=== PATIENT | male | born 1960 | race Caucasian/White ===

== ENCOUNTER → 2024-10-14 | Outpatient (CLI) | payer SELFPAY ==
--- NOTE | 2024-10-14 13:00 | PROSBIL_PTH ---
PATIENT: BRITTNY ARREDONDO [facility] U#:[id number] AGE/SX: 64/M ROOM: RE10/14/[address]: Dr. Demarco Parra MD : 1960 BED: DIS: 10/14/2024 SPEC #: [id number] RECD: 10/14/24 15:00 STATUS: ALYSON DALTON #: [id number] MOLINA: 10/14/24 13:[address]: Demarco Parra DEPT: SURGICAL PATHOLOGY RECD BY: Randy Turner ENTERED: 10/15/24 08:46 SP TYPE: PROST BX RJ DR: Dr. Dewey Olivier MD Tissues: A - PROSTATE RIGHT B - PROSTATE RIGHT C - PROSTATE RIGHT D - PROSTATE LEFT E - PROSTATE LEFT F - PROSTATE LEFT Procedures: PROSTATE BX Immunohistochemical Stains HEADER OPERATION: Prostate biopsy PRE-OP DIAGNOSIS: Elevated PSA TISSUE SUBMITTED: A - Right apex, B - Right mid, C - Right base, D - Left apex, E - Left mid, F - Left base MICROSCOPIC DIAGNOSIS A. Prostate, right apex, biopsy: * Benign prostate tissue. * IHC for [id number] supports the histologic impression. B. Prostate, right mid, biopsy: * Benign prostate tissue. C. Prostate, right base, biopsy: * Benign prostate tissue. D. Prostate, left apex, biopsy: * Benign prostate tissue. E. Prostate, left mid, biopsy: * Benign prostate tissue. F. Prostate, left base, biopsy: * Benign prostate tissue. MICROSCOPIC DESCRIPTION Slides are reviewed. All matched controls reacted appropriately. These tests were developed and their performance characteristics determined by [facility]. They may not have been cleared or approved by the [place] Food and Drug Administration. The FDA has determined that such clearance or approval is not necessary.? The above immunohistochemical/dualISH?markers are ordered and reviewed by the Pathologist. GROSS DESCRIPTION A. Received in formalin in a container labeled with the patient's name, date of , and RA are 2 white and wispy core biopsies of soft tissue measuring 0.7 x 0.1 cm and 1.2 x 0.1 cm. Submitted in toto in A1. B. Received in formalin in a container labeled with the patient's name, date of , and RM are 2 white and wispy core biopsies of soft tissue each measuring 1.5 x 0.1 cm. Submitted in toto in B1. C. Received in formalin in a container labeled with the patient's name, date of , and RB are 2 white and wispy core biopsies of soft tissue measuring 1.1 x 0.1 cm and 1.6 x 0.1 cm. Submitted in toto in C1. D. Received in formalin in a container labeled with the patient's name, date of , and LA are 2 white and wispy core biopsies of soft tissue each measuring 1.7 x 0.1 cm. Submitted in toto in D1. E. Received in formalin in a container labeled with the patient's name, date of , and LM are 2 white and wispy core biopsies of soft tissue each measuring 1.7 x 0.1 cm. Submitted in toto in E1. F. Received in formalin in a container labeled with the patient's name, date of , and LB are 2 white and wispy core biopsies of soft tissue measuring 1.2 x 0.1 cm and 1.5 x 0.1 cm. Submitted in toto in F1. [facility] 10-15-2024 CPT:[id number]
== END | disposition home or self-care (01) ==
PROVIDERS: PCP Family Medicine; Referring Provider Urology; Visit Provider Urology
DX: R97.20 Elevated prostate specific antigen [PSA] (principal)
CPT/HCPCS: 88305; 88342; G0416